=== PATIENT | male | born 1980 | race Asian ===

== ENCOUNTER 2017-06-19 05:51 | Emergency (ER) | payer BC ==
[~2017-06-19] VITALS: Ht 160 cm; Wt 54.4 kg
[2017-06-19 07:12] LABS: ALBUMIN 3.5 g/dL (3.4-5.0); ALKALINE PHOSPHATASE 83 U/L (46-116); ALT/SGPT 24 U/L (16-63); AST/SGOT 13 U/L (15-37); BILIRUBIN TOTAL 0.6 mg/dL (0.20-1.00); CALCIUM 8.2 mg/dL (8.5-10.1); CARBON DIOXIDE 24.8 mmol/L (21-32); CHLORIDE SERUM 108 mmol/L (98-107); CREATININE SERUM 1.1 mg/dL (0.7-1.3); GFR1 > 60 mL/min; GLUCOSE SERUM 123 mg/dL (74-106); SODIUM SERUM 142 mmol/L (136-145); TOTAL PROTEIN, SERUM 7.1 g/dL (6.4-8.2)
[2017-06-19 07:17] LABS: POTASSIUM SERUM 2.9 mmol/L (3.5-5.1)
[2017-06-19 07:36] LABS: BASOPHIL % 0.5 % (0-2)
[2017-06-19 08:03] LABS: PLATELET COUNT 185 x10^3mcL (130-400)
[2017-06-19 10:37] VITALS: BP 124/82
== END 2017-06-19 10:37 | disposition home or self-care (01) ==
LOC: ED 05:51
PROVIDERS: Emergency Medicine
DX: N20.0 Calculus of kidney (principal); E87.6 Hypokalemia; R03.0 Elevated blood-pressure reading, without diagnosis of hypertension; Z90.49 Acquired absence of other specified parts of digestive tract
CPT/HCPCS: J1885; J3010; J3480; J7030; J7050

== ENCOUNTER 2019-07-20 10:38 | Emergency (ER) | payer SELFPAY ==
[~2019-07-20] VITALS: Ht 165.1 cm; Wt 58.1 kg
[2019-07-20 10:58] VITALS: Ht 165.1 cm; Wt 58.1 kg
[2019-07-20 13:18] VITALS: BP 131/78
== END 2019-07-20 13:19 | disposition home or self-care (01) ==
LOC: ED 10:38
DX: M54.42 Lumbago with sciatica, left side (principal)